=== PATIENT | male | born 1945 | race African-American/Black ===

== ENCOUNTER 2017-07-01 06:25 | Day surgery (SDC) | payer MEDICARE, MEDICAID ==
[2017-07-01] MEDS ORDERED: Vancomycin HCl 1 GM in Premix Bag 1 BAG IVPB SCH (07:15)
[2017-07-01] MEDS ORDERED: Piperacillin/Tazobactam 3.375 GM in Sodium Chloride 0.9% 100 ML IVPB SCH (07:15)
[2017-07-01 08:05] LABS: Hematocrit 35.9 % (42.0-52.0); Mean Platelet Volume 6.9 fL (7.4-10.4); Red Blood Cell (RBC) Count 4.19 mill/uL (4.70-6.10); White Blood Cell (WBC) Count 7.2 thou/uL (4.8-10.8)
[2017-07-01 08:12] LABS: Anion Gap 16 mmol/L (10-20); BUN (Urea Nitrogen) 12 mg/dL (8.4-25.7); Calc. Creatinine Clearance 90 mL/min (70-130); Calcium 8.8 mg/dL (7.8-10.44); Carbon Dioxide 21 mmol/L (23-31); Chloride 106 mmol/L (98-107); Estimated GFR-MDRD Greater than 90
[2017-07-01 08:32] LABS: PTT 31.4 SEC (22.9-36.1); Prothrombin Time 14.8 SEC (12.0-14.7)
[2017-07-01] MEDS ORDERED: Fentanyl 250 MCG/5 ML VIAL ONE (09:13)
[2017-07-01] MEDS ORDERED: Midazolam HCl 2 mg/2 ml Vial ONE (09:13)
[2017-07-01] MEDS ORDERED: Propofol 200 MG/20 ML VIAL ONE ×2 (09:45)
[2017-07-01] MEDS ORDERED: ePHEDrine/0.9% NaCl/PF SYRINGE 50 mg/10 ml ONE ×2 (09:45)
--- NOTE | 2017-07-01 10:53 | OP ---
DATE OF PROCEDURE: 07/01/2017 PREOPERATIVE DIAGNOSES: 1. A 72-year-old -Russian male with history of alcohol abuse, dementia with large capacity myogenic bladder. 2. History of post-void residual 1400 mL. 3. History of transurethral resection of the prostate with improvement of post- void residual, however, recurrent urinary retention. 4. 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 5. No evidence of bladder neck contracture, transurethral resection of the prostate defect noted with no obstructive component. POSTOPERATIVE DIAGNOSES: 1. A 72-year-old -Russian male with history of alcohol abuse, dementia with large capacity myogenic bladder. 2. History of post-void residual 1400 mL. 3. History of transurethral resection of the prostate with improvement of post- void residual, however, recurrent urinary retention. 4. 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 5. No evidence of bladder neck contracture, transurethral resection of the prostate defect noted with no obstructive component. PROCEDURES: Cystoscopy, suprapubic tube placement, suprapubic tube tract dilatation. SURGEON: Annie Arriola D.O. ANESTHESIA: LMA. COMPLICATIONS: None apparent. DISPOSITION: To the recovery room in stable condition. SPECIMEN: None. DRAINS: 22 E[place]an Councill-tip suprapubic tube 15 mL of sterile water insufflated, attached to a leg bag gravity bag. INTRAOPERATIVE FINDINGS: 1. Bulbar urethra with false passage on p= CIC. 2. TUR defect with no evidence of obstructive component from hyperplasia of the prostate. 3. No evidence of bladder neck contracture. 4. Bladder with diffuse trabeculation No bladder tumors, stones or lesions appreciated. INDICATIONS FOR PROCEDURE AND HISTORY: Mr. Jaquez is a 72-year-old male who initially had a postvoid residual of 1400 mL with mild right hydronephrosis which resolved with indwelling Chapman catheter. The patient underwent cystoscopy , workup negative for malignancy. He underwent cystoscopy, urodynamics stress volume study, underwent TURP. He initially had improvement of postvoid residual , then subsequently was lost to follow up. He then represented with PVR of around 390 mL, repeat staging cystoscopy demonstrated no evidence of urethral stricture TUR defect. Subsequently, he had not followed up. He then represented after knee ORIF of the patella, was in a rehabilitation facility with urinary retention requiring CIC. Patient subsequently presented for reestablishment of urologic care with indwelling urethral Chapman catheter from senior living. He had a tight paraphimosis; unknown time of how long he had the paraphimotic ring, I had to perform an emergent dorsal slit to relieve the paraphimotic ring. He was monitored with indwelling Chapman catheter; however, has history of traumatic Chapman catheter removal on multiple occasions. As his dorsal slit incision has healed, he was transitioned to CIC. He was doing wall for a while, tolerating CIC; however, represented to my office. I was unable to place a Chapman catheter and had hematuria, I had concerns regarding false passage. A 16 Eritrean coude was passed by me without any difficulty with clear urine output. If clinically he appears to have a false passage from CIC, presents today for suprapubic tube. Indications were reviewed with the patient in detail. DESCRIPTION OF THE PROCEDURE: After the patient's consent is signed, the patient is taken to the operating room, placed in a dorsal lithotomy position with the genital area prepped and draped in the usual surgical sterile fashion. Prior CT demonstrates no evidence of bowel in the prevesical space as the bladder was grossly distended. We performed a cystoscopy after broad-spectrum antibiotics were provided. A 21 Eritrean cystoscope was utilized for cystoscopy which demonstrated a false passage at the level of the bulbar urethra. No gross evidence of stricture was appreciated. The prostatic urethra was staged demonstrating TUR defect with no evidence of recurrent obstruction, no evidence of bladder neck contracture. Bladder was entered which demonstrated no evidence of bladder stones, tumors. The UO's are approximately 5-8 mm away from the bladder neck. At this time, the bladder was filled to the level of the umbilicus which was palpable. Using an 18 gauge spinal needle, two fingerbreadths above the pubic symphysis I passed medial to the level of the bladder under direct visualization with a cystoscope. We subsequently then passed a 16-Eritrean Auramist suprapubic tube trocar after an 11 blade was utilized to make a skin incision. With the suprapubic tube trocar in place, I passed a 0.35 Super Stiff into the level of the bladder. Using a NephroMax balloon dilator, we dilated suprapubic tube tract to 30 E[place]an with ease. Subsequently passed a 24-[place]rit[place] Councill tip Chapman catheter over the wire. A 15 mL was insufflated with sterile water and the wire was completely removed. The suprapubic tube was sutured to skin using 2-0 nylon. This was attached to gravity leg bag and clear output was noted. He tolerated the procedure well and transported to the recovery room in stable condition. Strict instructions to senior living regarding suprapubic tube care. The wound is to be cleaned today with peroxide and changed every day for dressing. SP tube to gravity leg bag. Patient may discontinue his prior Flomax, Keflex prophylaxis. I have follow up with me in next Thursday for reassessment. We will proceed with interval suprapubic tube change every 4-6 weeks, pending his clinical course. GURU
--- NOTE | 2017-07-03 15:57 | EKG ---
Test Reason : PREOP Blood Pressure : / mmHG Vent. Rate : 088 BPM Atrial Rate : 088 BPM P-R Int : 162 ms QRS Dur : 082 ms QT Int : 368 ms P-R-T Axes : 073 -30 047 degrees QTc Int : 445 ms Normal sinus rhythm Left axis deviation Minimal voltage criteria for LVH, may be normal variant Abnormal ECG When compared with ECG of 21-FEB-2017 15:28, LA interval has decreased QRS duration has decreased Criteria for Septal infarct are no longer Present T wave inversion no longer evident in Inferior leads Confirmed by DR. Edilson CAMARILLO ([id number]) on 07/03/2017 3:56:52 PM Referred By: JACKELIN Confirmed By:DR. Edilson CAMARILLO
== END 2017-07-01 12:00 | disposition home or self-care (01) ==
LOC: SDC 06:25
PROVIDERS: ATTEND Urology
PROC: 0T9B00Z Drainage of Bladder with Drainage Device, Open Approach (ICD-10-PCS; principal; 2017-07-01)
PROC: 0TJB8ZZ Inspection of Bladder, Via Natural or Artificial Opening Endoscopic (ICD-10-PCS; 2017-07-01)
DX: R33.9 Retention of urine, unspecified (principal); F10.11 Alcohol abuse, in remission; F03.90 Unspecified dementia, unspecified severity, without behavioral disturbance, psychotic disturbance, mood disturbance, and anxiety; N41.1 Chronic prostatitis; N13.30 Unspecified hydronephrosis; N47.2 Paraphimosis; I11.9 Hypertensive heart disease without heart failure; J44.9 Chronic obstructive pulmonary disease, unspecified; Z79.82 Long term (current) use of aspirin; Z79.899 Other long term (current) drug therapy; Z98.49 Cataract extraction status, unspecified eye; Z90.79 Acquired absence of other genital organ(s); Z98.890 Other specified postprocedural states; Z87.891 Personal history of nicotine dependence
CPT/HCPCS: 51040; 52000; 80048; 85027; 85610; 85730; 93005; C2627; 36415; 93010; J2250; J2543; J2704; J3010; J3370; J7050

== ENCOUNTER 2017-08-12 15:48 | Emergency (ER) | payer MEDICARE, MEDICAID ==
--- NOTE | 2017-08-12 16:38 | RAD ---
TWO VIEWS RIGHT HIP: Comparison: None. History: Right hip pain after fall. FINDINGS: Two views of the right hip shows no evidence of acute fracture or dislocation. This exam is limited s econdary to rotation. No degenerative changes are seen in the right hip. IMPRESSION: No evidence of acute osseous abnormality. POS: [facility]
--- NOTE | 2017-08-12 17:09 | RAD ---
2 VIEWS LEFT HIP: Date: 08/12/17 COMPARISON: None. HISTORY: Left hip pain after fall. FINDINGS: Two views of the left hip are limited secondary to rotation. No obvious fracture or dislocation seen. No degenerative change is seen in the left hip. IMPRESSION: No obvious left hip abnormality on this limited exam. POS: [facility]
--- NOTE | 2017-08-12 17:54 | RAD ---
AP VIEW PELVIS: 08/12/17 HISTORY: Trauma. AP view pelvis is obtained. No definite evidence of acute pelvic fractures or acute bony lesions seen . Numerous pelvic phleboliths seen. IMPRESSION: No evidence of acute pelvic pathology seen. POS: [facility]
--- NOTE | 2017-08-12 18:12 | CT ---
HISTORY: Fall. Head trauma. Dementia. NONCONTRAST CT IMAGES OF THE BRAIN: 08/12/17 Comparison made to previous exam from 03/14/17. Noncontrast enhanced CT images of the brain demonstrates the brain to be unremarkable. No evidence of intracranial masses, hemorrhages, strokes or contusions seen. Ventricles are of normal size. IMPRESSION: Normal CT brain. POS: [facility]
--- NOTE | 2017-08-12 18:29 | CT ---
CT CERVICAL SPINE 08/12/17 HISTORY: 72-year-old with recent illness, dementia, fall. Noncontrast enhanced CT images of the cervical spine is obtained. Axial reconstructed images performe d. In addition, sagittal and coronal reconstructed images performed. CT images demonstrate extensive anterior bridging osteophytes involving the C3, C4, C5, C6 and C7 lev els. No definite evidence of acute cervical spine fracture seen. Multilevel changes of spondylosis is present. IMPRESSION: No evidence of acute cervical spine fracture. POS: [facility]
== END 2017-08-12 21:44 ==
LOC: ERS 15:48
DX: S09.90XA Unspecified injury of head, initial encounter (principal); M25.551 Pain in right hip; Z71.6 Tobacco abuse counseling; I10 Essential (primary) hypertension; F03.90 Unspecified dementia, unspecified severity, without behavioral disturbance, psychotic disturbance, mood disturbance, and anxiety; F17.210 Nicotine dependence, cigarettes, uncomplicated; W19.XXXA Unspecified fall, initial encounter; Y93.02 Activity, running
CPT/HCPCS: 70450; 72125; 72170

== ENCOUNTER 2017-12-30 10:45 | Outpatient (CLI) | payer MEDICARE, MEDICAID ==
--- NOTE | 2017-12-30 13:15 | RAD ---
ABDOMEN ONE VIEW: History: 72-year-old male with history of incomplete bladder emptying. FINDINGS: There is a moderate amount of scattered gas and fecal material within the colon including a borderlin e sized vertically oriented bowel loop overlying the right paravertebral region, probably a mildly di lated sigmoid colon. There is moderate focal material throughout the colon. Multiple calcified phlebo liths in the pelvis. No evidence for overt calculus. IMPRESSION: Gas and fecal material in the colon with borderline dilated vertically oriented loop of what appears to be sigmoid colon. No overt calculus. Multiple calcified phleboliths in the pelvis. POS: [facility]
--- NOTE | 2017-12-30 13:41 | ULT ---
RENAL ULTRASOUND: HISTORY: Evaluate renal cyst. COMPARISON: None. CORRELATION: CT abdomen and pelvis 03/25/16, 01/03/16. TECHNIQUE: Sagittal and transverse imaging of the kidneys is performed. FINDINGS: RIGHT KIDNEY: No cortical masses. No hydronephrosis. The right kidney measures 4.2 x 10.2 x 4.7 cm. LEFT KIDNEY: Two separate anechoic foci are identified, measuring 5.5 x 5.0 x 4.7 cm and 2.4 x 2.2 x 2.0 cm. Both lesions demonstrate through transmission and are compatible with cysts. No evidence of hydronephros is. Overall, the left kidney measures 6/7 x 5.7 x 11.8 cm. The urinary bladder is decompressed from Chapman catheterization. IMPRESSION: 1. No evidence of hydronephrosis. 2. Two separate left cortical cysts. POS: [facility]
== END 2017-12-30 10:46 | disposition home or self-care (01) ==
LOC: ULT 10:45
PROVIDERS: ATTEND Urology
DX: Z43.5 Encounter for attention to cystostomy (principal); R39.14 Feeling of incomplete bladder emptying; N40.1 Benign prostatic hyperplasia with lower urinary tract symptoms; N28.1 Cyst of kidney, acquired; I87.8 Other specified disorders of veins; R19.5 Other fecal abnormalities
CPT/HCPCS: 74018; 76770

== ENCOUNTER 2018-01-12 10:34 | Emergency (ER) | payer MEDICARE, MEDICAID ==
[2018-01-12 11:09] LABS: #Eosinphils 0.7 thou/uL (0.0-0.7); #Lymphocytes 1.6 thou/uL (1.20-3.40); #Monocytes 0.3 thou/uL (0.11-0.59); %Basophils 0.4 % (0.0-1.0); %Lymphocytes 24.6 % (21.0-51.0); %Monocytes 5.1 % (0.0-10.0); Hemoglobin 11.8 g/dL (14.0-18.0); Mean Corpuscular HGB CONC 34.4 g/dL (32.0-36.0); Mean Corpuscular Hemoglobin 28.3 pg (27.0-31.0); Mean Corpuscular Volume 82.4 fl (80.0-94.0); Mean Platelet Volume 7.1 fL (7.4-10.4); Platelet Count 221 thou/uL (130-400); RBC Distribution Width 13.1 % (11.5-14.5); Red Blood Cell (RBC) Count 4.18 mill/uL (4.70-6.10); White Blood Cell (WBC) Count 6.6 thou/uL (4.8-10.8)
[2018-01-12 11:26] LABS: ALT (SGPT) 34 U/L (8-55); AST (SGOT) 23 U/L (5-34); Albumin 3.7 g/dL (3.4-4.8); Alkaline Phosphatase 70 U/L (40-150); Anion Gap 11 mmol/L (10-20); BUN (Urea Nitrogen) 20 mg/dL (8.4-25.7); Bilirubin, Total 0.3 mg/dL (0.2-1.2); Calc. Creatinine Clearance 0 mL/min (70-130); Calcium 9.4 mg/dL (7.8-10.44); Carbon Dioxide 23 mmol/L (23-31); Chloride 107 mmol/L (98-107); Estimated GFR-MDRD 78; Globulin 3.2 g/dL (2.4-3.5); Glucose 95 mg/dL (83-110); Lipase 44 U/L (8-78); Potassium 3.5 mmol/L (3.5-5.1); Protein, Total 6.9 g/dL (5.8-8.1); Sodium 137 mmol/L (136-145)
[2018-01-12 12:02] LABS: Bilirubin Small (Negative); Blood, Urine Moderate (Negative); Glucose, Urine (Dipstick) Negative (Negative); Leukocyte Moderate (Negative); Nitrite Negative (Negative); Protein, Urine (Dipstick) 100 mg/dL (Neg-Trace)
[2018-01-12 12:05] LABS: Clarity CLOUDY (Clear)
[2018-01-12 12:06] LABS: Specific Gravity, Urine 1.027 (1.002-1.036)
[2018-01-12 12:08] LABS: Bacteria/HPF 4+ HPF (None Seen); Hyaline Casts/LPF NONE SEEN LPF (0-3 Hyaline)
== END 2018-01-12 15:15 | disposition home or self-care (01) ==
LOC: ERS 10:34
DX: R10.9 Unspecified abdominal pain (principal); I10 Essential (primary) hypertension; E78.00 Pure hypercholesterolemia, unspecified; J44.9 Chronic obstructive pulmonary disease, unspecified; F17.210 Nicotine dependence, cigarettes, uncomplicated; Z79.899 Other long term (current) drug therapy; Z79.82 Long term (current) use of aspirin
CPT/HCPCS: 36415; 80053; 81003; 81015; 83690; 85025; 99285

== ENCOUNTER 2018-05-27 09:08 | Outpatient (CLI) | payer MEDICARE, MEDICAID ==
--- NOTE | 2018-05-27 11:11 | CT ---
ABDOMEN AND PELVIC CT SCAN WITHOUT IV CONTRAST: HISTORY: A 73-year-old male with a history of atonic bladder. Suprapubic catheter in place. COMPARISON: 03/25/16. FINDINGS: Minimal linear parenchymal changes and some pleural thickening changes in both lung bases. Visualize d liver, gallbladder, pancreas, spleen, and adrenal glands are unremarkable as evaluated without IV c ontrast. Several left renal cysts up to 6.4 cm in size without evidence for calculus or acute obs truction. Chapman catheter, suprapubic, in place. There appears to be some diffuse wall thickening of essentially empty bladder. Moderate solid fecal material within the colon including dilated rectum with some rectal wall diffuse thickening. Evidence for left-sided testicle extending into the inguin al canal. Evidence for an umbilical hernia containing nondilated small bowel loops without evidence for bowel obstruction or incarceration, stable from prior study. There is marked arthrosis and degen erative changes involving the left hip joint with some fairly prominent intraosseous cystic changes i nvolving the acetabulum with some associated deformity raising concern for possible prior intervening injury. No evidence for overt acute fracture. There is some resultant medial protrusion of the melony tabulum with some considerable associated bone remodeling. Again, this appears new from a 03/25/16 st udy, but does not appear to be significantly changed from a prior KUB exam of 12/30/17. IMPRESSION: Stable left renal cyst without hydronephrosis or acute obstruction. Somewhat deformed acetabulum with some medial protrusion of the acetabulum and some marked subchondral cystic changes associated w ith some arthrosis and possibly related to old trauma but stable when compared to a KUB study of . Suprapubic Chapman catheter in place with some wall thickening and associated empty bladder. The left testicle appears to extend into the left inguinal canal. Moderate solid fecal material througho ut the colon and dilated rectum with some diffuse rectal wall thickening. POS: [facility]
== END 2018-05-27 09:09 | disposition home or self-care (01) ==
LOC: CT 09:08
PROVIDERS: ATTEND Urology
DX: N31.2 Flaccid neuropathic bladder, not elsewhere classified (principal); N28.1 Cyst of kidney, acquired; R19.5 Other fecal abnormalities; K62.89 Other specified diseases of anus and rectum
CPT/HCPCS: 74176